=== PATIENT | female | born 1970 | race African-American/Black ===

== ENCOUNTER 2017-01-07 17:18 | Emergency (ER) | payer BC ==
--- NOTE | 2017-01-07 18:43 | EDM.PDOC ---
ED HPI GENERAL MEDICAL PROBLEM - General Chief Complaint: Lower Extremity Injury/Pain Stated Complaint: LEFT KNEE PAIN Time Seen by Provider: 01/07/17 17:35 Source of Information: Reports: Patient History Limitations: Reports: No Limitations - History of Present Illness INITIAL COMMENTS - FREE TEXT/NARRATIVE: History of present illness: [46-year-old female comes in complaining of left knee pain status post jumping rope. Patient indicates that it didn't hurt right away but it progressively got worse to the point that it has a significant amount of impact on her ability to bend or straighten it. Patient denies any other trauma and/or long-term travel.] Review of systems: As per history of present illness and below otherwise all systems reviewed and negative. Past medical history: As per history of present illness and as reviewed below otherwise noncontributory. Surgical history: As per history of present illness and as reviewed below otherwise noncontributory. Social history: No reported history of drug or alcohol abuse. Family history: As per history of present illness and as reviewed below otherwise noncontributory. Physical exam: HEENT: Atraumatic, normocephalic, pupils reactive, negative for conjunctival pallor or scleral icterus, mucous membranes moist, throat clear, neck supple, nontender, trachea midline. Lungs: Clear to auscultation, breath sounds equal bilaterally, chest nontender. Heart: S1S2, regular, negative for clicks, rubs, or JVD. Abdomen: Soft, nondistended, nontender. Negative for masses or hepatosplenomegaly. Negative for costovertebral tenderness. Pelvis: Stable nontender. Genitourinary: Deferred. Rectal: Deferred. Extremities: Atraumatic, negative for cords or calf pain. Neurovascular unremarkable. Neuro: Awake, alert, oriented. Cranial nerves II through XII unremarkable. Cerebellum unremarkable. Motor and sensory unremarkable throughout. Exam nonfocal. Global assessment is benign save subjective complaint as noted in the history of present illness Diagnostics: [X-ray left knee] Therapeutics: [] Impression: [Knee pain] Plan: [Meloxicam, Medrol Dosepak] Definitive disposition and diagnosis as appropriate pending reevaluation and review of above. Left posterior knee Pain Score (Numeric/FACES): 8 - Related Data Allergies Allergy/AdvReac Type Severity Reaction Status Date / Time No Known Allergies Allergy Verified 01/07/17 17:35 Home Meds: Home Meds Meloxicam 7.5 mg PO BID #30 tablet 01/07/17 [Rx] Orphenadrine [Norflex] 100 mg PO BID #28 tab.er 01/07/17 [Rx] methylPREDNISolone [Medrol] 4 mg PO DAILY #21 tab.ds.pk 01/07/17 [Rx] Past Medical History - Past Surgical History GI Surgical History: Reports: Appendectomy Social & Family History - Family History Family Medical History: Noncontributory - Tobacco Use Smoking Status *Q: Never Smoker - Caffeine Use Caffeine Use: Reports: None - Recreational Drug Use Recreational Drug Use: No Review of Systems - Review of Systems Review Of Systems: See Below (History of present illness) ED EXAM, GENERAL - Physical Exam Exam: See Below (History of present illness) Course - Vital Signs Last Recorded V/S: Last Vital Signs Temp 37.0 C 01/07/17 17:35 Pulse 85 01/07/17 17:35 Resp 16 01/07/17 17:35 BP 128/79 01/07/17 17:35 Pulse Ox 98 01/07/17 17:35 - Orders/Labs/Meds Orders: Active Orders 24 hr Category Date Time Status Knee 3V Lt [CR] Stat Exams 01/07/17 17:38 Taken Departure - Departure Time of Disposition: 19:14 Disposition: Home, Self-Care 01 Condition: Good Clinical Impression: Knee pain, left - Discharge Information Prescriptions: Meloxicam 7.5 mg PO BID #30 tablet Orphenadrine [Norflex] 100 mg PO BID #28 tab.er methylPREDNISolone [Medrol] 4 mg PO DAILY #21 tab.ds.pk Forms: ED Department Discharge Additional Instructions: The following information is given to patients seen in the emergency department who are being discharged to home. This information is to outline your options for follow-up care. We provide all patients seen in our emergency department with a follow-up referral. The need for follow-up, as well as the timing and circumstances, are variable depending upon the specifics of your emergency department visit. If you don't have a primary care physician on staff, we will provide you with a referral. We always advise you to contact your personal physician following an emergency department visit to inform them of the circumstance of the visit and for follow-up with them and/or the need for any referrals to a consulting specialist. The emergency department will also refer you to a specialist when appropriate. This referral assures that you have the opportunity for follow-up care with a specialist. All of these measure are taken in an effort to provide you with optimal care, which includes your follow-up. Under all circumstances we always encourage you to contact your private physician who remains a resource for coordinating your care. When calling for follow-up care, please make the office aware that this follow-up is from your recent emergency room visit. If for any reason you are refused follow-up, please contact the [facility] Emergency Department at and asked to speak to the emergency department charge nurse. Take medication as directed Follow-up with PCP 1-2 days Return to ED as needed as discussed - My Orders Last 24 Hours: My Active Orders 01/07/17 17:38 Knee 3V Lt [CR] Stat - Assessment/Plan Last 24 Hours: My Active Orders 01/07/17 17:38 Knee 3V Lt [CR] Stat
[2017-01-07 19:29] VITALS: BP 140/79
--- NOTE | 2017-01-10 11:27 | CR ---
EXAM DATE: 01/07/17 PATIENT'S AGE: 46 Patient: JULIANA TORRES Facility: [place], [place] Site . Site : [id number] Study: XRay Knee [id number]/7/2017 6:47:25 PM Ordering Physician: Doctor Tobar Final Report: Indication: Pain Technique: Three views left knee Comparison: None Findings: Bones: Alignment is normal. No fractures or bone lesions. Joint spaces: Unremarkable. Soft tissues: Unremarkable. Impression: Negative. Dictated by Aliza Guerrero MD @ Jan 07 2017 7:08PM (Electronic Signature) Report Signed by Proxy. MISAEL
== END 2017-01-07 19:29 | disposition home or self-care (01) ==
LOC: MW.ED 17:18
DX: M25.562 Pain in left knee (principal); Z79.899 Other long term (current) drug therapy; Z90.49 Acquired absence of other specified parts of digestive tract
CPT/HCPCS: 73562-26-LT; 73562-LT; 99282; 99283

== ENCOUNTER 2017-10-07 21:57 | Emergency (ER) | payer BC ==
[2017-10-07] MEDS ORDERED: Ketorolac 60 MG/2 ML SDV IM ONE (22:22)
--- NOTE | 2017-10-07 22:22 | EDM.PDOC ---
ED HPI GENERAL MEDICAL PROBLEM - General Chief Complaint: REAL ESTATE CLOSER Problem Stated Complaint: STOMACH PAIN Time Seen by Provider: 10/07/17 22:13 - History of Present Illness INITIAL COMMENTS - FREE TEXT/NARRATIVE: HISTORY AND PHYSICAL: History of present illness: The patient is a 47-year-old female who presents with complaints of lower abdominal/pelvic cramping due to starting her period yesterday. According to the patient she had not had a menstrual cycle for 3 months and saw Mireille Delvalle in the clinic and had labs done yesterday including CBC CMP and cholesterol panel TSH and a urine test which was negative. These labs have been reviewed by me . Patient says that when she saw Mireille she had not started her period and she has a follow-up appointment in the end of the month. The patient did not have any hormone levels drawn or an ultrasound performed. The patient said that after that appointment she started her period which is heavier and more uncomfortable than usual. She has not taken any medications for the pain [id number] and she says that she is using several pads a day. She is not lightheaded or dizzy and she has no chest pain shortness of breath fever chills flank pain or urinary complaints. She has no nausea or vomiting and no diarrhea. She's having normal bowel movements. She's eating and drinking normally. The patient is here for the discomfort with her menstrual cycle. Review of systems: As per history of present illness and below otherwise all systems reviewed and negative. Past medical history: As per history of present illness and as reviewed below otherwise noncontributory. Surgical history: As per history of present illness and as reviewed below otherwise noncontributory. Social history: No reported history of drug or alcohol abuse. Family history: As per history of present illness and as reviewed below otherwise noncontributory. Physical exam: General: Well-developed well-nourished female who is nontoxic and vital signs of been reviewed by me HEENT: Atraumatic, normocephalic, negative for conjunctival pallor or scleral icterus, mucous membranes moist, throat clear, neck supple, nontender, trachea midline. Lungs: Clear to auscultation, breath sounds equal bilaterally, chest nontender. Heart: S1S2, regular in rhythm no overt murmurs Abdomen: Soft, nondistended, nontender. On deep palpation in the lower abdomen and pelvis area I'm unable to reproduce the pain and there is no rebound or guarding and no tympany impression. Bowel sounds are normoactive Negative for masses or hepatosplenomegaly. Pelvis: Stable nontender. Genitourinary: Deferred. Rectal: Deferred. Extremities: Atraumatic, negative for cords or calf pain. Neurovascular unremarkable. Neuro: Awake, alert, oriented. Cranial nerves II through XII unremarkable. Cerebellum unremarkable. Motor and sensory unremarkable throughout. Exam nonfocal. Diagnostics: Urine test CBC CMP and other labs from yesterday have been reviewed and will not be repeated Therapeutics: Toradol I discussed with the patient that if she has not had a period for the last 3 months this particular menstrual cycle will be more painful and may be heavier in the bleeding than her usual. As she had blood work done yesterday I will not repeat that and as she has not taken any medication I will give her advice on pain medication that she can take. I also advised her to keep her appointment with Mireille Delvalle for follow-up and further testing. Impression: Menstrual cramps Definitive disposition and diagnosis as appropriate pending reevaluation and review of above. Abdomen Pain Score (Numeric/FACES): 7 - Related Data Allergies Allergy/AdvReac Type Severity Reaction Status Date / Time No Known Allergies Allergy Verified 10/07/17 22:07 Home Meds: Home Meds . 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: Musculoskeletal History: Reports: None Neurological History: Reports: None Psychiatric History: Reports: None Endocrine/Metabolic History: Reports: None Hematologic History: Reports: None Immunologic History: Reports: None Oncologic (Cancer) History: Reports: None Dermatologic History: Reports: None - Infectious Disease History Infectious Disease History: Reports: None - Past Surgical History Head Surgeries/Procedures: Reports: None GI Surgical History: Reports: Appendectomy, Cholecystectomy Female Surgical History: Reports: Tubal Ligation Social & Family History - Family History Family Medical History: Noncontributory - Tobacco Use Smoking Status *Q: Never Smoker - Caffeine Use Caffeine Use: Reports: None - Recreational Drug Use Recreational Drug Use: No ED ROS GENERAL - Review of Systems Review Of Systems: ROS reveals no pertinent complaints other than HPI. ED EXAM, GENERAL - Physical Exam Exam: See Below (See dictation) Course - Vital Signs Last Recorded V/S: Last Vital Signs Temp 36.4 C 10/07/17 22:08 Pulse 81 10/07/17 22:08 Resp 18 10/07/17 22:08 BP 143/76 H 10/07/17 22:08 Pulse Ox 98 10/07/17 22:08 - Orders/Labs/Meds Orders: Active Orders 24 hr Category Date Time Status Ketorolac [Toradol] Med 10/07/17 22:22 Once 60 mg IM ONETIME ONE Medication Orders Ketorolac Tromethamine (Toradol) 60 mg IM ONETIME ONE Stop: 10/07/17 22:23 Meds: Medications Generic Name Dose Route Start Last Admin Trade Name Freq PRN Reason Stop Dose Admin Ketorolac Tromethamine 60 mg 10/07/17 22:22 Toradol IM 10/07/17 22:23 ONETIME ONE Departure - Departure Time of Disposition: 22:24 Disposition: Home, Self-Care 01 Condition: Good Clinical Impression: Menstrual cramps - Discharge Information Referrals: PCP,None [Primary Care Provider] - Forms: ED Department Discharge Additional Instructions: The following information is given to patients seen in the emergency department who are being discharged to home. This information is to outline your options for follow-up care. We provide all patients seen in our emergency department with a follow-up referral. The need for follow-up, as well as the timing and circumstances, are variable depending upon the specifics of your emergency department visit. If you don't have a primary care physician on staff, we will provide you with a referral. We always advise you to contact your personal physician following an emergency department visit to inform them of the circumstance of the visit and for follow-up with them and/or the need for any referrals to a consulting specialist. The emergency department will also refer you to a specialist when appropriate. This referral assures that you have the opportunity for followup care with a specialist. All of these measure are taken in an effort to provide you with optimal care, which includes your followup. Under all circumstances we always encourage you to contact your private physician who remains a resource for coordinating your care. When calling for followup care, please make the office aware that this follow-up is from your recent emergency room visit. If for any reason you are refused follow-up, please contact the emergency department at and ask to speak to the emergency department charge nurse. [facility] [address] [facility] [address] [place] [address] Please push hydration and rest. Use medications you have been prescribed the [employer] Meds, ibuprofen, for pain and any [id number] meds you like to try. Use heating pad or ice to the lower abdomen to help with the discomfort if needed. Please call and follow-up with Mireille Delvalle as you have scheduled and return to ER as needed and as discussed. - My Orders Last 24 Hours: My Active Orders 10/07/17 22:22 Ketorolac [Toradol] 60 mg IM ONETIME ONE - Assessment/Plan Last 24 Hours: My Active Orders 10/07/17 22:22 Ketorolac [Toradol] 60 mg IM ONETIME ONE
[2017-10-07 22:53] VITALS: BP 160/60
== END 2017-10-07 22:50 | disposition home or self-care (01) ==
LOC: MW.ED 21:57
DX: N94.6 Dysmenorrhea, unspecified (principal)
CPT/HCPCS: 96372; 99284; J1885; 99283